=== PATIENT | female | born 1960 | race Caucasian/White ===

== ENCOUNTER 2018-07-11 16:56 | Inpatient (IN) ==
--- NOTE | 2018-07-11 17:29 | ED ---
HPI General Chief complaint: Neuro Symptoms/Deficit Stated complaint: Evac/Numbness Time Seen by Provider: 07/11/18 17:07 Source: patient, family, RN notes reviewed and old records reviewed Mode of arrival: EMS Limitations: no limitations History of Present Illness HPI narrative: 58-year-old female presents to the emergency department via EMS for evaluation of numbness and tingling to her left upper extremity with some mild weakness. She states this started in her second and third fingers, then traveled to her hands, then traveled to her breast, then upper arm. She states it is now in her left face as well. She states that it first started at 310 this afternoon, 2 hours ago. Patient also states she has some blurry vision. Symptoms are not worsening, but unchanged. She does also report history of atypical migraines with blurry vision in the past. She also reports stabbing pain to the left neck that started at the same time. Patient also reports left leg weakness that is been ongoing since a "mini stroke" 3 weeks ago. She states she was at [facility] at that time. She states she was started on aspirin. Patient has history of [place]'s disease, received IVIG for hypogammaglobulinemia, spinal stenosis. She states that she was referred to Dr. Cobos, neurosurgeon. He reviewed her records, but has not yet given her an appointment. Patient states that she believes her current symptoms are coming from her cervical spine. Patient had MRI done on June 22, 2018. She has this disc with her at bedside. Patient has multiple allergies to medications including contrast. Moderate severity. Onset (ago): hour(s) Location: face and upper extremity Severity: moderate Pain Consistency: constant Relieving factors: none Exacerbating factors: none Associated symptoms: denies other symptoms Related Data Home Medications Medication Instructions Recorded Confirmed albuterol sulfate [ProAir HFA] 2 puff INHALATION Q4-6H PRN 06/11/18 07/11/18 alprazolam [Xanax] 2 mg PO TID PRN 06/11/18 07/11/18 budesonide-formoterol [Symbicort] 2 puff INHALATION BID 06/11/18 07/11/18 fluticasone 1 spray INTRANASAL DAILY 06/11/18 07/11/18 hydrocortisone 5 mg PO BID NEB 06/11/18 07/11/18 levothyroxine 50 mcg PO DAILY 06/11/18 07/11/18 montelukast 10 mg PO QPM 06/11/18 07/11/18 omeprazole 40 mg PO DAILY 06/11/18 07/11/18 oxycodone-acetaminophen 1 tab PO Q4-6H PRN 06/11/18 07/11/18 fzzyasyunp-wpfetodkkftyn-llvf 1 cap PO BID PRN 07/11/18 07/11/18 [Fioricet] promethazine 25 mg PO TID PRN 07/11/18 07/11/18 Allergies Allergy/AdvReac Type Severity Reaction Status Date / Time morphine Allergy Severe itching Verified 07/11/18 17:25 penicillin G Allergy Severe THROAT Verified 07/11/18 17:25 CLOSES, FACIAL EDEMA latex Allergy Intermediate Rash Verified 07/11/18 17:25 shellfish derived Allergy Intermediate ITCHING, Verified 07/11/18 17:25 REDNESS, EDEMA iodine Allergy Unknown Rash Verified 07/11/18 17:25 potassium iodide Allergy Unknown Rash Verified 07/11/18 17:25 povidone-iodine Allergy Unknown Rash Verified 07/11/18 17:25 sodium iodide Allergy Unknown Rash Verified 07/11/18 17:25 sodium iodide Allergy Unknown Rash Verified 07/11/18 17:25 adhesive AdvReac Intermediate REDNESS Verified 07/11/18 17:25 gabapentin AdvReac Palpitation Verified 07/11/18 17:25 s prednisone AdvReac Numbness Verified 07/11/18 17:25 Review of Systems ROS: all other systems reviewed are negative 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 (Acute) TIA (transient ischemic attack) (Acute) Tumor, thyroid (Acute) Addisons disease (Acute) COPD (chronic obstructive pulmonary disease) (Acute) Lower back pain (Acute) Nerve damage (Acute) Spinal stenosis (Acute) Tumor, thyroid (Acute) Surgical History Surgical History H/O knee surgery (Acute) H/O tubal ligation (Acute) History of carpal tunnel surgery of right wrist (Acute) History of mandibular surgery (Acute) Social History Social History Substance History: No History of Abuse Second Hand Smoke Exposure: Yes Smoking Status: Current every day smoker Tobacco Type: Cigarettes How Often Do You Have a Drink Containing Alcohol: Monthly or less Recent Travel in [place] within the Last 8 Weeks: No Recent Out of Country Travel within the Last 8 Weeks: No Exam Narrative Exam Narrative: GENERAL: Well-nourished, well-developed female patient, afebrile SKIN: Focused skin assessment warm/dry. HEAD: Normocephalic. Atraumatic EYES: No scleral icterus. No injection or drainage. NECK: Supple, trachea midline. No JVD or lymphadenopathy. CARDIOVASCULAR: Regular rate and rhythm without murmurs, gallops, or rubs. RESPIRATORY: Breath sounds equal bilaterally. No accessory muscle use. Lung sounds are clear to auscultation peer GASTROINTESTINAL: Abdomen soft, non-tender, nondistended. MUSCULOSKELETAL: No cyanosis, or edema. Left upper extremity strength 5/5. Left lower extremity strength 4/5 - Patient states this has been ongoing for 3 weeks. BACK: Nontender without obvious deformity. No CVA tenderness. NEUROLOGICAL: Awake and alert. Cranial nerves II through XII intact. Motor and sensory grossly within normal limits. Five out of 5 muscle strength in all muscle groups. Normal speech. Patient reports decreased sensation in the left arm. No facial droop. Course Initial Documented Vital Signs Temperature 98.4 F 07/11/18 16:56 Pulse Rate 75 07/11/18 16:56 Respiratory Rate 18 07/11/18 16:56 Blood Pressure 128/77 07/11/18 16:56 Pulse Oximetry 95 07/11/18 16:56 Last Documented Vital Signs Temperature 98.4 F 07/11/18 16:56 Pulse Rate 68 07/11/18 18:15 Respiratory Rate 18 07/11/18 18:15 Blood Pressure 127/72 07/11/18 18:15 Pulse Oximetry 95 07/11/18 18:15 NIH Stroke Scale NIH Stroke Scale Level of Consciousness: 0-Alert Orientation Questions: 0-Answers both correct Responds to Commands: 0-Both tasks correct Gaze Eye Movement: 0-Horizontal movement WNL Visual Payan: 0-No visual field defect Facial Movement: 0-Normal Motor Functions Arm LEFT: 0-No drift Motor Functions Arm RIGHT: 0-No drift Motor Functions Leg LEFT: 1-Drift before 5 seconds Motor Functions Leg RIGHT: 0-No drift Limb Ataxia: 0-No ataxia Sensory Loss: 1-Mild sensory loss Best Language: 0-Normal Articulation: 0-Normal Extinction or Inattention Sensory: 0-Absent Total: 2 Medical Decision Making MDM Narrative Medical decision making narrative: 58-year-old female presents to the emergency department for evaluation of left arm paresthesias and left face numbness. She has history of stroke 3 weeks ago and is on IVIG. She is not a TPA candidate. My attending physician, Dr. Hernandez, examined patient as well. Patient has a desk of an MRI that she had done. MRI of the cervical spine without contrast was done on June 22, 2018 which shows mild disc bulge at the C5-C6 and C6-C7 levels, minimal central disc protrusion C4-C5 level, left neural foraminal narrowing at the C5-C6 level and bilateral neural foraminal narrowing at C6-C7 level primarily secondary to vertebral hypertrophy. Patient had MRI of the brain done at the same time which was negative. CBC, CMP, CK, troponin, PTT, PT /INR, CT the brain are ordered and pending. Patient is requesting pain medication for left neck pain. Patient states that morphine makes her itch, but she can take it with Benadryl or she can have Dilaudid which does not make her itch. Patient is given Dilaudid 0.5 mg IV, Zofran 4 mg IV. EKG shows SR, HR 75, no acute ST changes CBC shows no acute abnormality. CMP shows no acute abnormality. CK is 118. Troponin is less than 0.02. PTT is 20.3. PT/INR is 9.3/0.9. CT of the brain is negative. Patient states she took 81 mg aspirin earlier today, she was given another 3 baby aspirin to make a full aspirin. Hospitalist is paged for admission. Medical Screen Exam Complete: Yes Emergency Medical Condition: Yes Differential Diagnosis Differential Diagnosis: spinal stenosis vs. CVA vs. TIA vs. intracranial hemorrhage vs. electrolyte abnormality Medical Records Medical records reviewed: Yes I reviewed the patient's medical records. Lab Data Result diagrams: 07/11/18 18:00 07/11/18 18:00 Lab Results 07/11/18 07/11/18 07/11/18 Range/Units 18:00 18:00 18:00 WBC 9.3 (4.0-11.0) th/mm3 RBC 4.51 (4.00-5.30) mil/mm3 Hgb 13.7 (11.6-15.3) gm/dL Hct 40.8 (35.0-46.0) % MCV 90.5 (80.0-100.0) fL MCH 30.4 (27.0-34.0) pg MCHC 33.6 (32.0-36.0) % RDW 15.1 (11.6-17.2) % Plt Count 304 (150-450) th/mm3 MPV 7.8 (7.0-11.0) fL Neut % (Auto) 74.9 H (16.0-70.0) % Lymph % (Auto) 19.2 (9.0-44.0) % [place] % (Auto) 4.2 (0.0-8.0) % Eos % (Auto) 0.9 (0.0-4.0) % Baso % (Auto) 0.8 (0.0-2.0) % Neut # (Auto) 6.9 (1.8-7.7) th/mm3 Lymph # (Auto) 1.8 (1.0-4.8) th/mm3 [place] # (Auto) 0.4 (0.0-0.9) th/mm3 Eos # (Auto) 0.1 (0.0-0.4) th/mm3 Baso # (Auto) 0.1 (0.0-0.2) th/mm3 WBC Differential . Differential Comment Auto diff final PT 9.3 L (9.8-11.6) sec INR 0.9 Ratio APTT 20.3 L (24.3-30.1) sec Sodium 138 (136-145) meq/L Potassium 4.9 (3.5-5.1) meq/L Chloride 106 (98-107) meq/L Carbon Dioxide 23.9 (21.0-32.0) meq/L Anion Gap 8 (5-15) meq/L BUN 15 (7-18) mg/dL Creatinine 0.74 (0.50-1.00) mg/dL Estimated GFR 80 L (>89) mL/min POC Glucose (68-110) mg/dl Random Glucose 88 (74-106) mg/dL Calcium 8.5 (8.5-10.1) mg/dL Total Bilirubin 0.3 (0.2-1.0) mg/dL AST 43 H (15-37) U/L ALT 23 (10-53) U/L Alkaline Phosphatase 108 (45-117) U/L Total Creatine Kinase 118 (26-192) U/L CK-MB (CK-2) Less than 1.0 (0.5-3.6) ng/mL Troponin I Less than 0.02 L (0.02-0.05) ng/mL Total Protein 7.0 (6.4-8.2) g/dL Albumin 3.2 L (3.4-5.0) g/dL 07/11/18 Range/Units 18:13 WBC (4.0-11.0) th/mm3 RBC (4.00-5.30) mil/mm3 Hgb (11.6-15.3) gm/dL Hct (35.0-46.0) % MCV (80.0-100.0) fL MCH (27.0-34.0) pg MCHC (32.0-36.0) % RDW (11.6-17.2) % Plt Count (150-450) th/mm3 MPV (7.0-11.0) fL Neut % (Auto) (16.0-70.0) % Lymph % (Auto) (9.0-44.0) % [place] % (Auto) (0.0-8.0) % Eos % (Auto) (0.0-4.0) % Baso % (Auto) (0.0-2.0) % Neut # (Auto) (1.8-7.7) th/mm3 Lymph # (Auto) (1.0-4.8) th/mm3 [place] # (Auto) (0.0-0.9) th/mm3 Eos # (Auto) (0.0-0.4) th/mm3 Baso # (Auto) (0.0-0.2) th/mm3 WBC Differential Differential Comment PT (9.8-11.6) sec INR Ratio APTT (24.3-30.1) sec Sodium (136-145) meq/L Potassium (3.5-5.1) meq/L Chloride (98-107) meq/L Carbon Dioxide (21.0-32.0) meq/L Anion Gap (5-15) meq/L BUN (7-18) mg/dL Creatinine (0.50-1.00) mg/dL Estimated GFR (>89) mL/min POC Glucose 98 (68-110) mg/dl Random Glucose (74-106) mg/dL Calcium (8.5-10.1) mg/dL Total Bilirubin (0.2-1.0) mg/dL AST (15-37) U/L ALT (10-53) U/L Alkaline Phosphatase (45-117) U/L Total Creatine Kinase (26-192) U/L CK-MB (CK-2) (0.5-3.6) ng/mL Troponin I (0.02-0.05) ng/mL Total Protein (6.4-8.2) g/dL Albumin (3.4-5.0) g/dL Imaging Data Radiologist's impression: Head CT 07/11/18 17:25 CONCLUSION: 1. Negative noncontrast head CT. . Discharge Plan Discharge Disposition Patient Disposition: 30 Still Patient Discharge Details Diagnosis: Neurological complaint Physicians Team ED Provider: Sanjiv Hernandez ED Midlevel Provider: Itzel Michaud Primary Care Provider: Dorothy Owens Rxs /Orders / Referrals /Forms Prescriptions: No Action omeprazole 40 mg Capsule,Delayed Release(Dr/Ec) 40 mg PO DAILY RF: 0 oxycodone-acetaminophen 5-325 mg Tablet 1 tab PO Q4-6H PRN (Reason: Acute Pain) RF: 0 levothyroxine 50 mcg Tablet 50 mcg PO DAILY RF: 0 montelukast 10 mg Tablet 10 mg PO QPM RF: 0 alprazolam [Xanax] 2 mg Tablet 2 mg PO TID PRN (Reason: Anxiety) RF: 0 hydrocortisone 10 mg Tablet 5 mg PO BID NEB RF: 0 albuterol sulfate [ProAir HFA] 90 mcg/actuation Hfa Aerosol Inhaler 2 puff INHALATION Q4-6H PRN (Reason: Bronchodilation) RF: 0 fluticasone 50 mcg/actuation [place],Suspension 1 spray INTRANASAL DAILY RF: 0 budesonide-formoterol [Symbicort] 160-4.5 mcg/actuation Hfa Aerosol Inhaler 2 puff INHALATION BID RF: 0 promethazine 25 mg Tablet 25 mg PO TID PRN (Reason: Nausea) RF: 0 vwpfwawwof-ymbytsrtayepd-vsuc [Fioricet] 50-300-40 mg Capsule 1 cap PO BID PRN (Reason: Migraine Headache) RF: 0 Status ED Status: With Doctor
[2018-07-11] MEDS ORDERED: Sod Chloride 0.9% Inj 1,000 ML IV.CONT SCH (17:30)
[2018-07-11] MEDS ORDERED: HYDROmorphone PF Inj 0.5 MG/0.5 ML Syringe IV.PUSH ONE (17:59)
[2018-07-11 18:26] LABS: Baso # (Auto) 0.1 th/mm3 (0.0-0.2); Baso % (Auto) 0.8 % (0.0-2.0); Eos # (Auto) 0.1 th/mm3 (0.0-0.4); Eos % (Auto) 0.9 % (0.0-4.0); Hematocrit 40.8 % (35.0-46.0); Hemoglobin 13.7 gm/dL (11.6-15.3); Lymph # (Auto) 1.8 th/mm3 (1.0-4.8); Lymph % (Auto) 19.2 % (9.0-44.0); Mean Corpuscular HGB Conc 33.6 % (32.0-36.0); Mean Corpuscular Hemoglobin 30.4 pg (27.0-34.0); Mean Corpuscular Volume 90.5 fL (80.0-100.0); Mean Platelet Volume 7.8 fL (7.0-11.0); Mono # (Auto) 0.4 th/mm3 (0.0-0.9); Mono % (Auto) 4.2 % (0.0-8.0); Neut # (Auto) 6.9 th/mm3 (1.8-7.7); Neut % (Auto) 74.9 % (16.0-70.0); Platelet Count 304 th/mm3 (150-450); Red Blood Count 4.51 mil/mm3 (4.00-5.30); Red Cell Distribution Width 15.1 % (11.6-17.2); White Blood Count 9.3 th/mm3 (4.0-11.0)
[2018-07-11] MEDS ORDERED: HYDROmorphone PF Inj 2 MG/ML Vial IV.PUSH ONE (18:28)
[2018-07-11 18:41] LABS: Activated Partial Thrombo Time 20.3 sec (24.3-30.1); INR 0.9 Ratio; Prothrombin Time 9.3 sec (9.8-11.6)
[2018-07-11 18:53] LABS: Alanine Aminotransferase 23 U/L (10-53)
--- NOTE | 2018-07-11 18:57 | CT ---
EXAM DATE: 07/11/2018 6:52 PM EDT AGE/SEX: 58 years / Female INDICATIONS: Left arm shoulder and face numbness. CLINICAL DATA: This is the patient's initial encounter. Patient reports that signs and symptoms have been present for 1 day and indicates a pain score of 0/10. MEDICAL/SURGICAL HISTORY: Chronic obstructive pulmonary disease. rajinder's disease TIA thyroid tumo r None. RADIATION DOSE: 34.39 CTDI (mGy) COMPARISON: [facility], CT HEAD W/O CONTRAST, 06/11/2018. . TECHNIQUE: CT of the head without contrast. Using automated exposure control and adjustment of the mA and/or kV according to patient size, radiation dose was kept as low as reasonably achievable to ob tain optimal diagnostic quality images. DICOM format image data is available electronically for revi ew and comparison. FINDINGS: Cerebrum: The ventricles are normal for age. No evidence of midline shift, mass lesion, hemorrhage or acute infarction. No extraaxial fluid collections are seen. Posterior Fossa: The cerebellum and brainstem are intact. The 4th ventricle is midline. The cerebe llopontine angle is unremarkable. Extracranial: The visualized portion of the orbits is intact. Skull: The calvaria is intact. No evidence of skull fracture. CONCLUSION: 1. Negative noncontrast head CT. . Electronically signed by: Sung Velazquez MD 07/11/2018 6:56 PM EDT
[2018-07-11 19:03] LABS: Albumin 3.2 g/dL (3.4-5.0); Alkaline Phosphatase 108 U/L (45-117); Anion Gap 8 meq/L (5-15); Aspartate Aminotransferase 43 U/L (15-37); Blood Urea Nitrogen 15 mg/dL (7-18); Calcium 8.5 mg/dL (8.5-10.1); Carbon Dioxide 23.9 meq/L (21.0-32.0); Chloride 106 meq/L (98-107); Creatine Kinase 118 U/L (26-192); Glomerular Filtration Rate 80 mL/min (>89); Glucose,Random 88 mg/dL (74-106); Sodium 138 meq/L (136-145)
[2018-07-11 19:23] LABS: Potassium 4.9 meq/L (3.5-5.1)
[2018-07-11] MEDS ORDERED: Acetaminophen 325 MG Tablet PO PRN (21:15)
[2018-07-11] MEDS ORDERED: Bisacodyl 10 MG Supp RECTAL PRN (21:15)
--- NOTE | 2018-07-11 21:27 | P.HP ---
History of Present Illness Service: [facility] Primary Care Physician: Dorothy Owens History of Present Illness: 58-year-old female with a past medical history significant for [place]'s disease , COPD, previous TIA 3 weeks ago, spinal stenosis, hypothyroidism and chronic low back pain presents to the emergency department for the evaluation of left sided numbness. The patient reports that at 3 PM this afternoon she started having numbness in her fingers of her left hand. She states the numbness then transitioned up to her hand up her arm and ultimately to her face. She also endorses associated vision loss that has since resolved. She reports left lower extremity weakness that has been present since her "mini stroke" 3 weeks ago where she was evaluated in [facility]. Upon further questioning, the patient reports she was diagnosed with a TIA. She has spinal stenosis with chronic low back pain and reports that she is supposed to see Dr. Cobos. She denies any chest pain or shortness of breath. No abdominal pain. No nausea/vomiting/diarrhea. No fever/chills. 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 TIA (transient ischemic attack) Tumor, thyroid Addisons disease COPD (chronic obstructive pulmonary disease) Lower back pain Nerve damage Spinal stenosis Tumor, thyroid - Surgical History Surgical History: Surgical History (Last Updated 07/11/18 @ 17:34 by Stephanie Puri) H/O knee surgery H/O tubal ligation History of carpal tunnel surgery of right wrist History of mandibular surgery - Family History Family History: Family History (Last Updated 07/11/18 @ 21:21 by Haleigh Duran MD) Other Breast cancer - Tobacco History Second Hand Smoke Exposure: Yes Tobacco Use In Past 30 Days: Yes Smoking Status: Current every day smoker Tobacco Type: Cigarettes - Alcohol History How Often Do You Have a Drink Containing Alcohol: Monthly or less - Substance Use History Substance History: No History of Abuse - Travel History Recent Travel in the [facility] Within the Last 8 Weeks: No Recent Travel Out of the Country Within the Last 8 Weeks: No - Immunization History Tetanus Immunization: Unsure Hx Influenza Vaccine This Season: No Medications and Allergies Active Medications: Active Medications Sodium Chloride (Ns Inj) 1,000 mls @ 70 mls/hr IV.CONT .[id number] SAULO Stop: 07/12/18 07:47 Last Admin: 07/11/18 18:17 Dose: 70 mls/hr Sodium Chloride (Ns Flush) 2 ml IV.FLUSH PRN PRN PRN Reason: FLUSH AFTER USING IV ACCESS Last Admin: 07/11/18 18:18 Dose: 2 ml Allergies Allergy/AdvReac Type Severity Reaction Status Date / Time morphine Allergy Severe itching Verified 07/11/18 17:25 penicillin G Allergy Severe THROAT Verified 07/11/18 17:25 CLOSES, FACIAL EDEMA latex Allergy Intermediate Rash Verified 07/11/18 17:25 shellfish derived Allergy Intermediate ITCHING, Verified 07/11/18 17:25 REDNESS, EDEMA iodine Allergy Unknown Rash Verified 07/11/18 17:25 potassium iodide Allergy Unknown Rash Verified 07/11/18 17:25 povidone-iodine Allergy Unknown Rash Verified 07/11/18 17:25 sodium iodide Allergy Unknown Rash Verified 07/11/18 17:25 sodium iodide Allergy Unknown Rash Verified 07/11/18 17:25 adhesive AdvReac Intermediate REDNESS Verified 07/11/18 17:25 gabapentin AdvReac Palpitation Verified 07/11/18 17:25 s prednisone AdvReac Numbness Verified 07/11/18 17:25 Home Medications Medication Instructions Recorded Confirmed Type albuterol sulfate [ProAir HFA] 2 puff INHALATION Q4-6H PRN 06/11/18 07/11/18 History alprazolam [Xanax] 2 mg PO TID PRN 06/11/18 07/11/18 History budesonide-formoterol [Symbicort] 2 puff INHALATION BID 06/11/18 07/11/18 History fluticasone 1 spray INTRANASAL DAILY 06/11/18 07/11/18 History hydrocortisone 5 mg PO BID NEB 06/11/18 07/11/18 History levothyroxine 50 mcg PO DAILY 06/11/18 07/11/18 History montelukast 10 mg PO QPM 06/11/18 07/11/18 History omeprazole 40 mg PO DAILY 06/11/18 07/11/18 History oxycodone-acetaminophen 1 tab PO Q4-6H PRN 06/11/18 07/11/18 History jvghrsikya-xcxlxlzpgfdnm-mzls 1 cap PO BID PRN 07/11/18 07/11/18 History [Fioricet] promethazine 25 mg PO TID PRN 07/11/18 07/11/18 History Exam Vital signs: Vital Signs 07/11/18 16:56 07/11/18 17:25 07/11/18 18:15 Temperature 98.4 F Pulse Rate 75 68 Respiratory Rate 18 18 Blood Pressure 128/77 127/72 Pulse Oximetry 95 95 95 07/11/18 20:15 Temperature Pulse Rate 63 Respiratory Rate 18 Blood Pressure 136/79 Pulse Oximetry 98 Intake & Output 07/11/18 07/11/18 07/12/18 06:59 18:59 06:59 Weight 172 kg Narrative: Gen.: No acute distress Head: Normocephalic. Atraumatic. EENT: Pupils equal round and reactive to light. Nose without drainage. Airway intact. Throat without injection. Cardiovascular: Regular rate and rhythm. No murmurs, rubs or gallops. Respiratory: Lungs clear to auscultation bilaterally. No wheezes or rhonchi. Abdomen: Soft, nontender, nondistended. No peritoneal signs. Musculoskeletal: No gross deformities. No edema. Skin: No obvious rashes or erythema. Neuro: Cranial nerves II through XII grossly intact. 4/5 left lower extremity weakness. Patient reports that she is unable to do heel to cardenas testing secondary to pain/weakness and will not attempt this. 5/5 handgrip, upper extremity strength. Reports "pins and needles sensation" in the left fingers, hand, left arm and around her mouth. Results - Labs CBC & Chem 7: 07/11/18 18:00 07/11/18 18:00 Labs: Laboratory Results - last 24 hr 07/11/18 07/11/18 07/11/18 18:00 18:00 18:00 WBC 9.3 RBC 4.51 Hgb 13.7 Hct 40.8 MCV 90.5 MCH 30.4 MCHC 33.6 RDW 15.1 Plt Count 304 MPV 7.8 Neut % (Auto) 74.9 H Lymph % (Auto) 19.2 [place] % (Auto) 4.2 Eos % (Auto) 0.9 Baso % (Auto) 0.8 Neut # (Auto) 6.9 Lymph # (Auto) 1.8 [place] # (Auto) 0.4 Eos # (Auto) 0.1 Baso # (Auto) 0.1 WBC Differential . Differential Comment Auto diff final PT 9.3 L INR 0.9 APTT 20.3 L Sodium 138 Potassium 4.9 Chloride 106 Carbon Dioxide 23.9 Anion Gap 8 BUN 15 Creatinine 0.74 Estimated GFR 80 L POC Glucose Random Glucose 88 Calcium 8.5 Total Bilirubin 0.3 AST 43 H ALT 23 Alkaline Phosphatase 108 Total Creatine Kinase 118 CK-MB (CK-2) Less than 1.0 Troponin I Less than 0.02 L Total Protein 7.0 Albumin 3.2 L 07/11/18 18:13 WBC RBC Hgb Hct MCV MCH MCHC RDW Plt Count MPV Neut % (Auto) Lymph % (Auto) [place] % (Auto) Eos % (Auto) Baso % (Auto) Neut # (Auto) Lymph # (Auto) [place] # (Auto) Eos # (Auto) Baso # (Auto) WBC Differential Differential Comment PT INR APTT Sodium Potassium Chloride Carbon Dioxide Anion Gap BUN Creatinine Estimated GFR POC Glucose 98 Random Glucose Calcium Total Bilirubin AST ALT Alkaline Phosphatase Total Creatine Kinase CK-MB (CK-2) Troponin I Total Protein Albumin - Imaging Impressions Head CT 07/11/18 17:25 CONCLUSION: 1. Negative noncontrast head CT. . Caprini VTE Risk Assessment Caprini VTE Risk Assessment: No/Low Risk (score <= 1) Caprini Risk Assessment Model: Point Value = 1 Point Value = 2 Point Value = 3 Point Value = 5 Age 41-60 Minor surgery BMI > 25 kg/m2 Swollen legs Varicose veins or History of unexplained or recurrent spontaneous Oral contraceptives or hormone replacement Sepsis (< 1 month) Serious lung disease, including pneumonia (< 1 month) Abnormal pulmonary function Acute myocardial infarction Congestive heart failure (< 1 month) History of inflammatory bowel disease Medical patient at bed rest Age 61-74 Arthroscopic surgery Major open surgery (> 45 min) Laparoscopic surgery (> 45 min) Malignancy Confined to bed (> 72 hours) Immobilizing plaster cast Central venous access Age >= 75 History of VTE Family history of VTE Factor V Leiden Prothrombin [id number] Lupus anticoagulant Anticardiolipin antibodies Elevated serum homocysteine Heparin-induced thrombocytopenia Other congenital or acquired thrombophilia Stroke (< 1 month) Elective arthroplasty Hip, pelvis, or leg fracture Acute spinal cord injury (< 1 month) Prophylaxis Regimen: Total Risk Factor Score Risk Level Prophylaxis Regimen 0-1 Low Early ambulation 2 Moderate Order ONE of the following: *Sequential Compression Device (SCD) *Heparin 5000 units SQ BID 3-4 Higher Order ONE of the following medications: *Heparin 5000 units SQ TID *Enoxaparin/Lovenox 40 mg SQ daily (WT < 150 kg, CrCl > 30 mL/min) *Enoxaparin/Lovenox 30 mg SQ daily (WT < 150 kg, CrCl > 10-29 mL/min) *Enoxaparin/Lovenox 30 mg SQ BID (WT < 150 kg, CrCl > 30 mL/min) AND/OR *Sequential Compression Device (SCD) 5 or more Highest Order ONE of the following medications: *Heparin 5000 units SQ TID (Preferred with Epidurals) *Enoxaparin/Lovenox 40 mg SQ daily (WT < 150 kg, CrCl > 30 mL/min) *Enoxaparin/Lovenox 30 mg SQ daily (WT < 150 kg, CrCl > 10-29 mL/min) *Enoxaparin/Lovenox 30 mg SQ BID (WT < 150 kg, CrCl > 30 mL/min) AND *Sequential Compression Device (SCD) Assessment and Plan - Plan Assessment/plan: 1. 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 Hypothyroidism Continue home Synthroid 4. COPD Continue home Symbicort 5. Spinal stenosis/chronic back pain Patient will require outpatient follow-up FEN N.p.o. Elect lites: Monitor and replete as needed NS at 70 cc/hour
[2018-07-11] MEDS: Sod Chloride 0.9% Inj 1,000 ML IV.CONT SCH (22:28)
[2018-07-11] MEDS ORDERED: oxyCODONE/Acetaminophen 10/325 Tablet PO ONE (23:41)
[2018-07-12] MEDS ORDERED: Levothyroxine 50 MCG Tablet PO SCH (06:00)
[2018-07-12 07:19] LABS: Alanine Aminotransferase 21 U/L (10-53); Albumin 2.8 g/dL (3.4-5.0); Alkaline Phosphatase 93 U/L (45-117); Anion Gap 6 meq/L (5-15); Aspartate Aminotransferase 17 U/L (15-37); Blood Urea Nitrogen 10 mg/dL (7-18); Calcium 7.8 mg/dL (8.5-10.1); Carbon Dioxide 27.8 meq/L (21.0-32.0); Chloride 111 meq/L (98-107); Glomerular Filtration Rate 83 mL/min (>89); Glucose,Random 73 mg/dL (74-106); Potassium 3.9 meq/L (3.5-5.1); Sodium 145 meq/L (136-145); Total Protein 6.2 g/dL (6.4-8.2)
[2018-07-12] MEDS: Aspirin 325 MG Tablet PO SCH (08:28)
[2018-07-12] MEDS: Hydrocortisone 10 MG Tablet PO SCH ×3 (08:28→21:16)
[2018-07-12] MEDS: Budesonide-Formoterol 160/4.5 MCG 6 GM Inhaler INH SCH ×2 (10:58→21:17)
[2018-07-12] MEDS: Senna/Docusate Sodium 8.6/50 MG Tablet PO SCH ×2 (10:59→21:17)
--- NOTE | 2018-07-12 11:21 | MB ---
cc: Gita Dawkins MD DATE: 07/12/2018 REASON FOR CONSULT: Possible TIA. HISTORY OF PRESENT ILLNESS: The patient is a 58-year-old woman with primary care Dr. Dorothy Owens, with a history of Bulloch's, COPD, TIA 3 weeks ago at [facility], spinal stenosis, chronic neck pain, hypothyroidism, comes in with left-sided numbness apparently started in the fingers of the left hand and went up to the face. She states she has some chronic numbness in the left leg from old injury. Apparently, she was at [facility] in [place] a few weeks ago and had a workup; however, we do not have that workup available. She also has a history of spinal stenosis and should be seeing Neurosurgery at some point. Has had an MRI of her neck, which she complains of chronic pain, recently I believe in [facility]. Follows with a pain management doctor as well. Also, has a history of hypogammaglobulinemia and follows with Dr. Rhoades, receiving IVIG as warranted. I believe it has been a couple of months since she has had her last IVIG. The patient also has a history of breast cancer and ovarian cancer per chart. SOCIAL HISTORY: She is a smoker daily, alcohol infrequently. No substance abuse. HOME MEDICATIONS: Refer to her MAR, but she is on hydrocortisone 5 mg, Synthroid for thyroid. Of note, she states she has thyroid nodules as well. She is on pain medication as well. PHYSICAL EXAMINATION: VITAL SIGNS: Temperature is 97.7, pulse 63, respiratory rate 17, blood pressure is 113/67, saturating at 98%. NECK: Supple. I do not appreciate any bruits. HEART: Regular. NEUROLOGIC: She is awake. She is alert. She is fluent. Pupils reactive. Face symmetrical. Tongue is midline. Motor arango, there is no significant drift or leg lag. She just has what looks like generalized weakness, possibly from disuse and from chronic pain, but she has not lateralizing to one side. Her DTRs are brisk. Toes are downgoing. Sensory is decreased on the left side of her face and left arm to light touch. Cerebellar is normal. Gait is withheld for safety concerns. DIAGNOSTIC DATA: Labs are reviewed. Her CBC: Her neutrophil percentage is 74.9. Coag panel: PT 9.3, PTT 28.3. Chemistry: GFR is 83, glucose 73, calcium 7.8, albumin 2.8. Report arango, is far CT of the head, did not show anything acute. ASSESSMENT AND PLAN: Possible transient ischemic attack may be related to spinal stenosis. Recommend getting a workup. We will do the MRI. I am going to also get an EEG on her as well. Continue her home medicines. Consider consulting Dr. Rhoades with this immunoglobulinemia if she needs any IVIG while she is here. Possibly consulting neurosurgery for her C-spine. I do not see any myelopathic features, but will defer to neurosurgery if anything inpatient arango is indicated. If the report from [facility] for MRI can be obtained, otherwise consider repeating an MRI C-spine. I will also go ahead and get a MRA [place], get a carotid ultrasound, as well as an echo. Maintain her aspirin and check a fasting lipid panel: LDL above 100, certainly will start her on a statin if needed. Continue current care. I have PT and OT assess her. Maintain telemetry for any dysrhythmia. MD CHRISTOPHER Han/ashish , 10:09 AM , 10:20 AM
--- NOTE | 2018-07-12 11:37 | US ---
EXAM DATE: 07/12/2018 11:31 AM EDT AGE/SEX: 58 years / Female INDICATIONS: Trans ischemic attack. CLINICAL DATA: This is the patient's initial encounter. Patient reports that signs and symptoms have been present for 1 day and indicates a pain score of 10/10. MEDICAL/SURGICAL HISTORY: . Colby's disease. Spinal stenosis. COPD. CVA. Stenosis of jimena ry in neck. TIA. Thyroid tumor. . Hysterectomy. Knee surgery. Tubal ligation. Carpal tunnel rig ht wrist. Mandibular surgery. COMPARISON: No prior exams available for comparison. VELOCITY PARAMETERS: ICA/CCA Ratio: Right 1.6 , Left 0.94 ICA: Right 138 cm/sec, Left 103 cm/sec CCA: Right 86 cm/sec, Left 109 cm/sec ECA: Right 71 cm/sec, Left 67 cm/sec Vertebral: Right 53 cm/sec antegrade, Left 76 cm/sec antegrade FINDINGS: Right Carotid: No significant plaque is visualized. There is mild elevated velocity in the right int ernal carotid artery. Left Carotid: No significant plaque is visualized. The waveforms are within normal limits. Other: A 1.8 x 1.0 x 1.1 cm hypoechoic circumscribed right thyroid nodule is noted. It is solid in a ppearance. CONCLUSION: 1. Right Internal Carotid Artery: No significant stenosis or atherosclerotic plaque is visualized. 2. Left Internal Carotid Artery: No significant stenosis or atherosclerotic plaque is visualized. 3. Right thyroid nodule. Electronically signed by: Juancarlos Leiva MD 07/12/2018 11:36 AM EDT
--- NOTE | 2018-07-12 13:07 | P.PNIM ---
Subjective Interval history: Patient reports persistent neck pain. She endorsed left lower extremity weakness and left upper extremity numbness. Physical Exam Vital signs: Vital Signs 07/11/18 16:56 07/11/18 17:25 07/11/18 18:15 Temperature 98.4 F Pulse Rate 75 68 Respiratory Rate 18 18 Blood Pressure 128/77 127/72 Pulse Oximetry 95 95 95 07/11/18 19:22 07/11/18 20:15 07/11/18 22:19 Temperature 97.3 F L Pulse Rate 63 57 L Respiratory Rate 17 18 18 Blood Pressure 136/79 130/63 Pulse Oximetry 98 99 07/12/18 00:00 07/12/18 01:56 07/12/18 04:00 Temperature 97.4 F L 97.2 F L Pulse Rate 53 L 54 L Respiratory Rate 18 18 18 Blood Pressure 114/73 105/67 Pulse Oximetry 97 97 07/12/18 08:00 Temperature 97.7 F Pulse Rate 63 Respiratory Rate 17 Blood Pressure 113/67 Pulse Oximetry 98 Intake & Output 07/11/18 07/12/18 07/12/18 18:59 06:59 18:59 Output Total 100 / 100 Balance -100 / -100 Weight 172 kg 85.7 kg Output: Urine 100 / 100 Other: # Voids 2 Date of Last Bowel Movement 07/11/18 07/11/18 Narrative: GENERAL: This is a well-nourished, well-developed patient, in no apparent distress. CARDIOVASCULAR: Normal rate and regular rhythm without murmurs, gallops, or rubs. RESPIRATORY: Good respiratory efforts. Breath sounds equal and clear to auscultation bilaterally. GASTROINTESTINAL: Abdomen soft, non-tender, non-distended. Normal active bowel sounds MUSCULOSKELETAL: Extremities without cyanosis, or edema. NEURO: Alert & Oriented x4 to person, place, time, situation. 4+ out of 5 left lower extremity. 5 out of 5 rest of the major muscle groups. PSYCH: Appropriate mood and affect. Results - Labs CBC & Chem 7: 07/11/18 18:00 07/12/18 05:35 Laboratory Results - last 24 hr 07/11/18 07/11/18 07/11/18 18:00 18:00 18:00 WBC 9.3 RBC 4.51 Hgb 13.7 Hct 40.8 MCV 90.5 MCH 30.4 MCHC 33.6 RDW 15.1 Plt Count 304 MPV 7.8 Neut % (Auto) 74.9 H Lymph % (Auto) 19.2 [place] % (Auto) 4.2 Eos % (Auto) 0.9 Baso % (Auto) 0.8 Neut # (Auto) 6.9 Lymph # (Auto) 1.8 [place] # (Auto) 0.4 Eos # (Auto) 0.1 Baso # (Auto) 0.1 WBC Differential . Differential Comment Auto diff final PT 9.3 L INR 0.9 APTT 20.3 L Sodium 138 Potassium 4.9 Chloride 106 Carbon Dioxide 23.9 Anion Gap 8 BUN 15 Creatinine 0.74 Estimated GFR 80 L POC Glucose Random Glucose 88 Calcium 8.5 Total Bilirubin 0.3 AST 43 H ALT 23 Alkaline Phosphatase 108 Total Creatine Kinase 118 CK-MB (CK-2) Less than 1.0 Troponin I Less than 0.02 L Total Protein 7.0 Albumin 3.2 L 07/11/18 07/12/18 18:13 05:35 WBC RBC Hgb Hct MCV MCH MCHC RDW Plt Count MPV Neut % (Auto) Lymph % (Auto) [place] % (Auto) Eos % (Auto) Baso % (Auto) Neut # (Auto) Lymph # (Auto) [place] # (Auto) Eos # (Auto) Baso # (Auto) WBC Differential Differential Comment PT INR APTT Sodium 145 Potassium 3.9 D Chloride 111 H Carbon Dioxide 27.8 Anion Gap 6 BUN 10 Creatinine 0.72 Estimated GFR 83 L POC Glucose 98 Random Glucose 73 L Calcium 7.8 L Total Bilirubin 0.3 AST 17 ALT 21 Alkaline Phosphatase 93 Total Creatine Kinase CK-MB (CK-2) Troponin I Total Protein 6.2 L D Albumin 2.8 L - Imaging Impressions Head CT 07/11/18 17:25 CONCLUSION: 1. Negative noncontrast head CT. . Carotid Doppler Study 07/12/18 00:00 CONCLUSION: 1. Right Internal Carotid Artery: No significant stenosis or atherosclerotic plaque is visualized. 2. Left Internal Carotid Artery: No significant stenosis or atherosclerotic plaque is visualized. 3. Right thyroid nodule. Assessment and Plan - Plan 58-year-old female who presented with acute neurological symptoms including left upper extremity numbness, left lower extremity weakness, vision loss. TIA versus worsening spinal stenosis: -Discussed the case with neurology, Dr. Dawkins. This is the patient's second hospitalization within the past couple of weeks. I reviewed the report for her MRI from 06/22/18 which revealed cervical disc bulging and spinal stenosis. Patient reports she previously spoke to Dr. Cobos office and is awaiting an appointment. - Agree with neurology, consult neurosurgery to evaluate the film and further workup or intervention as indicated. -Continue CVA workup with MRI, carotid ultrasound. 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 Rhoades for IVIG. Per the last note on March 2018, she was supposed to follow-up in 3 weeks. - Will consult Dr. Rhoades. Not clear to me how often she is supposed to receive IVIG. Hypothyroidism Continue home Synthroid COPD Continue home Symbicort Spinal stenosis/chronic back pain -Continue home dose narcotic. Neurosurgery consulted as above. GI prophylaxis: PPI. Stool softener PRN constipation. DVT PPx: Lovenox Discussed Condition With: Neurology, Dr. Dawkins
[2018-07-12] MEDS: Sod Chloride 0.9% Inj 1,000 ML IV.CONT SCH (13:39)
[2018-07-12 14:06] LABS: Chol/HDL Ratio 3.48 Ratio; HDL Cholesterol 56.8 mg/dL (40.0-60.0)
--- NOTE | 2018-07-12 16:00 | MR ---
EXAM DATE: 07/12/2018 3:56 PM EDT AGE/SEX: 58 years / Female INDICATIONS: CVA. CLINICAL DATA: This is the patient's initial encounter. Patient reports that signs and symptoms have been present for 1 day and indicates a pain score of 0/10. MEDICAL/SURGICAL HISTORY: None. Hysterectomy. Tubal ligation. Left knee. COMPARISON: No prior exams available for comparison. TECHNIQUE: 3D [id number] MRA was performed. Source images, multiplanar STS MIP, and 3D volum e MIP reconstructions were reviewed. FINDINGS: There is excellent visualization of the major intracranial arteries out to the second-order branch ve ssels. There is no evidence for vessel truncation or stenosis, and no evidence for vascular malforma tion. There is a 3.9 mm aneurysm in the right para ophthalmic region seen on sagittal image 30 of series 10 2, and axial source image 70. It is directed superiorly. CONCLUSION: 1. Right paraophthalmic artery aneurysm. Electronically signed by: Juancarlos Leiva MD 07/12/2018 3:59 PM EDT
--- NOTE | 2018-07-12 16:14 | MR ---
EXAM DATE: 07/12/2018 4:02 PM EDT AGE/SEX: 58 years / Female INDICATIONS: CVA. CLINICAL DATA: This is the patient's initial encounter. Patient reports that signs and symptoms have been present for 1 day and indicates a pain score of 0/10. MEDICAL/SURGICAL HISTORY: None. Hysterectomy. Tubal ligation. Colectomy and broken jaw. COMPARISON: C, MRA HEAD W/O CONTRAST, 07/12/2018. . TECHNIQUE: Multiplanar, multisequence examination of the brain was performed without contrast. FINDINGS: Diffusion weighted images demonstrate no evidence for acute infarction. Ventricles and cisterns are o f normal size and configuration. The signal intensity of the brain is normal. No hemorrhage or mass. CONCLUSION: 1. Negative MR Brain non contrast. Electronically signed by: Juancarlos Leiva MD 07/12/2018 4:13 PM EDT
[2018-07-12 17:19] LABS: Immunoglobulin A 189 mg/dL (81-446)
[2018-07-12 17:30] LABS: Immunoglobulin G 754 mg/dL (660-1620); Immunoglobulin M 43 mg/dL (49-302)
[2018-07-12] MEDS: Montelukast 10 MG Tablet PO SCH (18:18)
--- NOTE | 2018-07-12 18:59 | ECG ---
Date Performed: 07/11/2018 Time Performed: 17:21:51 PTAGE: 58 years EKG: Sinus rhythm WITH SINUS ARRHYTHMIA LOW QRS VOLTAGE IN PRECORDIAL LEADS BORDERLINE ECG PREVIOUS TRACING : 06/16/2015 10.40 Since the previous tracing, no significant change noted DOCTOR: Timothy Garcia Interpretating Date/Time 07/12/2018 18:54:01
--- NOTE | 2018-07-12 19:51 | MG ---
cc: Gita Dawkins MD EEG NUMBER: [id number] INDICATIONS: Room 1518. I am reading a requesting awake, drowsy, sleep hyperventilation good effort. Photic done. CT negative. Admitted with numbness, left face and arm. Possible transient ischemic attack, started in the arm and then marched up to the face, possible seizures. History of [place] and other medical problems. DESCRIPTION OF RECORD: The patient has a background rhythm of 11 Hz, 20-40 microvolts. The patient seems to be snoring from the beginning portion of this recording, so there is some artifact seen. Does not correlate with any epileptiform features. Otherwise fairly symmetrical background. Photic stimulation does elicit a driving response. We tried to keep the patient awake during that portion. IMPRESSION: Overall, normal appearing electroencephalogram without any epileptiform features. Clinical correlation. Gita Dawkins MD DF/ct , 07:10 PM , 07:15 PM
--- NOTE | 2018-07-12 20:09 | MB ---
cc: Amrita Rhoades MD,Carey WANG DATE: 07/12/2018 REFERRING PHYSICIAN: Carey Sy MD CHIEF COMPLAINT: Dr. Sy requested a consultation for Ms. Lawrence regarding hypogammaglobulinemia. HISTORY OF PRESENT ILLNESS: Ms. Lawrence is a 58-year-old woman with a history of ovarian and breast cancer. She also has multinodular goiter and hypothyroidism for which she is on Synthroid. She is very particular about her Synthroid medication. She has a history of hypogammaglobulinemia for which she was seen recently. She was diagnosed at the [facility] and her previous place of residence. She was treated with IVIG every 28 days. She was followed in hematology clinic. Over the last several visits, her immunoglobulins were within the normal range. For this reason, she was not treated with IVIG. She reported a history of stroke or TIA and was admitted to [facility]. Imaging study performed on an outpatient basis included an MRI of the brain. MRI of the cervical spine on 06/22/2018 that showed bowel disk bulges at C5-C6 and C6-C7. There is mild central disk protrusion at C4-C5. There is left neural foraminal narrowing at C5-C6 and bilateral neural foraminal narrowing at C6-C7. MRI of the brain on 06/22/2018 was negative. She presented to the emergency room on 07/11/2018 with neurologic symptoms. She had numbness and tingling of her left upper extremity and some mild weakness. She still complains of numbness of her left side of her face and the left side of her body. She describes having a mini stroke. Imaging study was reviewed including the CT of cervical spine, CT head, carotid Doppler, MRA, and MRI. The only significant finding is a right para-ophthalmologic artery aneurysm that does not explain her symptoms. Neurology has been consulted. She denies any fevers, chills, or night sweats. She has no infection. She mainly complains of the neurologic symptom. Hematology/oncology is consulted for the hypogammaglobulinemia history. Laboratory evaluation including an IgG which was within normal limits. PAST MEDICAL HISTORY: Anemia, anxiety, depression, diverticulosis, COPD/asthma, migraine with aura, recurrent maxillary sinusitis, spinal stenosis, chronic tobacco use, hypogammaglobulinemia, multinodular goiter, history of uterine cancer/ovarian cancer, history of breast cancer. PAST SURGICAL HISTORY: Left knee surgery, endoscopy, left neck lymph node biopsy, colon resection, colposcopy, ADOLPH/BSO in 2001. FAMILY HISTORY: Mother is alive. No significant family history of immunodeficiency. SOCIAL HISTORY: She is single, disabled. She quit smoking 12 years ago. She drinks actively. She denies any illicit drug use. ALLERGIES: 1. CODEINE. 2. MORPHINE. 3. PENICILLIN. CURRENT MEDICATIONS: 1. Tylenol p.r.n. 2. Ventolin. 3. Xanax p.r.n. 4. Aspirin. 5. Dulcolax p.r.n. 6. Symbicort. 7. Solu-Cortef. 8. Lactulose. 9. Synthroid. 10. Singulair. 11. Zofran. 12. Percocet p.r.n. 13. Protonix. 14. Gayle-Colace. 15. Senokot. PHYSICAL EXAMINATION: VITAL SIGNS: Temperature 97.7, heart rate 69, respiratory rate 17, blood pressure 127/66, saturation 96%. GENERAL: Ms. Lawrence is a well-developed, well-nourished woman, who looks her stated age. She seems to be doing well and stable. She has many complaints. HEENT: Her pupils are round, reactive to light and accommodation. Oropharynx is clear. NECK: Supple. LUNGS: Clear anteriorly. CARDIOVASCULAR: Normal rate and rhythm. ABDOMEN: Benign. EXTREMITIES: Lower extremities with no edema. NEUROLOGIC: Nonfocal. She moves all 4 extremities. LABORATORY DATA: CBC is normal. Chemistry significant for a mild hypoalbuminemia. Glucose is mildly elevated. ASSESSMENT AND PLAN: Ms. Lawrence is a 58-year-old woman with multiple medical problems described above. She is admitted with neurologic symptoms and weakness on the left side. Workup is ongoing for a neurologic event. We discussed her adrenal insufficiency. We will coordinate her hydrocortisone as she takes it at home. We will write that she could take her own Synthroid for which she is very particular. She does not need IVIG at this juncture. Even during an acute illness such as this, her immunoglobulin level is normal. I recommend no specific therapy. I will follow her on outpatient basis. The case was discussed with neurology. We will see her at her regularly scheduled visit to check her immunoglobulin again on outpatient basis. MD DAY Ocampo/marnie , 06:27 PM , 06:39 PM
[2018-07-13] MEDS: Sod Chloride 0.9% Inj 1,000 ML IV.CONT SCH ×2 (05:52→18:52)
[2018-07-13 06:27] VITALS: RESP 18
[2018-07-13] MEDS: Senna/Docusate Sodium 8.6/50 MG Tablet PO SCH (08:59)
[2018-07-13] MEDS: Aspirin 325 MG Tablet PO SCH (08:59)
[2018-07-13] MEDS: Budesonide-Formoterol 160/4.5 MCG 6 GM Inhaler INH SCH (10:52)
[2018-07-13] MEDS: Hydrocortisone 10 MG Tablet PO SCH ×3 (10:52→15:58)
--- NOTE | 2018-07-13 12:52 | ECHRPT ---
Indication: cva/tia CONCLUSIONS Normal left ventricular size. Wall thickness is normal. The left ventricular systolic function is normal with an estimated ejection fraction in the range of 60-65%. Trace mitral valve regurgitation. There is trace tricuspid valve regurgitation. The estimated pulmonary arterial pressure is 27 mmHg. BP: / HR: Rhythm: MEASUREMENTS (Male / Female) Normal Values Technical Quality: 2D ECHO LV Diastolic Diameter PLAX 4.2 cm 4.2 - 5.9 / 3.9 - 5.3 cm LV Systolic Diameter PLAX 3.1 cm IVS Diastolic Thickness 0.7 cm 0.6 - 1.0 / 0.6 - 0.9 cm LVPW Diastolic Thickness 0.8 cm 0.6 - 1.0 / 0.6 - 0.9 cm LV Relative Wall Thickness 0.3 RV Internal Dim ED PLAX 3.2 cm LVOT Diameter 1.9 cm LV Ejection Fraction MOD 4C 60.6 % LV Ejection Fraction 4C AL 62.0 % M-MODE Aortic Root Diameter MM 3.4 cm LA Systolic Diameter MM 3.9 cm LA Ao Ratio MM 1.1 AV Cusp Separation MM 2.1 cm DOPPLER AV Peak Velocity 129.0 cm/s AV Peak Gradient 6.7 mmHg LVOT Peak Velocity 106.0 cm/s LVOT Peak Gradient 4.5 mmHg AV Area Cont Eq pk 2.3 cm Mitral E Point Velocity 87.4 cm/s Mitral A Point Velocity 76.5 cm/s Mitral E to A Ratio 1.1 LV E' Lateral Velocity 13.3 cm/s Mitral E to LV E' Lateral Ratio 6.6 LV E' Septal Velocity 9.2 cm/s Mitral E to LV E' Septal Ratio 9.5 TV Peak Velocity 190.0 cm/s TR Peak Velocity 205.0 cm/s TR Peak Gradient 16.8 mmHg Right Atrial Pressure 10.0 mmHg Pulmonary Artery Systolic Pressu 26.8 mmHg Right Ventricular Systolic Press 26.8 mmHg PV Peak Velocity 70.6 cm/s PV Peak Gradient 2.0 mmHg FINDINGS LEFT VENTRICLE Normal left ventricular size. Wall thickness is normal. The left ventricular systolic function is normal with an estimated ejection fraction in the range of 60-65%. RIGHT VENTRICLE Normal right ventricular size and systolic function. LEFT ATRIUM The left atrial size is normal. RIGHT ATRIUM The right atrial size is normal. ATRIAL SEPTUM Normal atrial septal thickness without atrial level shunting by limited color doppler interrogation. AORTA The aortic root and proximal ascending aorta are normal in size on limited imaging. MITRAL VALVE Trace mitral valve regurgitation. AORTIC VALVE Trileaflet aortic valve. No aortic valve stenosis or regurgitation. TRICUSPID VALVE There is trace tricuspid valve regurgitation. The estimated pulmonary arterial pressure is 27 mmHg. PULMONARY VALVE No pulmonary valve regurgitation or stenosis. VESSELS The inferior vena cava is normal in size. PERICARDIUM No pericardial effusion. Junior Menard MD (Electronically Signed) Final Date:13 July 2018 12:51
--- NOTE | 2018-07-13 16:44 | P.PNIM ---
Subjective Interval history: Patient reports she is feeling better in terms of left lower leg weakness. She believes it is now at baseline. No longer having left upper extremity numbness. She states the neck numbness and neck pain is at baseline. MRI of the brain is negative. 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 Physical Exam Vital signs: Vital Signs 07/12/18 20:00 07/12/18 20:40 07/12/18 22:52 Temperature 98.1 F Pulse Rate 61 Respiratory Rate 18 18 Blood Pressure 122/60 Pulse Oximetry 95 95 07/13/18 00:00 07/13/18 00:30 07/13/18 04:00 Temperature 97.6 F 97.2 F L Pulse Rate 58 L 58 L 59 L Respiratory Rate 18 16 Blood Pressure 106/58 L 123/69 Pulse Oximetry 94 L 96 07/13/18 04:10 07/13/18 04:30 07/13/18 08:00 Temperature 98.7 F Pulse Rate 56 L 62 Respiratory Rate 18 18 Blood Pressure 141/81 H Pulse Oximetry 94 L 07/13/18 10:11 07/13/18 10:40 07/13/18 12:00 Temperature 98 F Pulse Rate 57 L 55 L Respiratory Rate 18 Blood Pressure 137/72 Pulse Oximetry 94 L 96 07/13/18 13:09 Temperature Pulse Rate 57 L Respiratory Rate Blood Pressure Pulse Oximetry Intake & Output 07/12/18 07/13/18 07/13/18 18:59 06:59 18:59 Intake Total 1310 / 1310 1000 / 1000 Balance 1310 / 1310 1000 / 1000 Weight 85.7 kg Intake: IV 950 / 950 1000 / 1000 NS Inj 1,000 ML @ 70 mls/hr IV. 950 / 950 CONT .[id number] [facility] Rx#:[id number] Oral 360 / 360 Other: # Voids 3 1 Date of Last Bowel Movement 07/11/18 07/11/18 # Bowel Movements 0 Narrative: GENERAL: This is a well-nourished, well-developed patient, in no apparent distress. CARDIOVASCULAR: Normal rate and regular rhythm without murmurs, gallops, or rubs. RESPIRATORY: Good respiratory efforts. Breath sounds equal and clear to auscultation bilaterally. GASTROINTESTINAL: Abdomen soft, non-tender, non-distended. Normal active bowel sounds MUSCULOSKELETAL: Extremities without cyanosis, or edema. NEURO: Alert & Oriented x4 to person, place, time, situation. 4+ out of 5 left lower extremity. 5 out of 5 rest of the major muscle groups. PSYCH: Appropriate mood and affect. Results - Labs CBC & Chem 7: 07/11/18 18:00 07/12/18 05:35 Laboratory Results - last 24 hr 07/12/18 07/12/18 07/12/18 16:37 17:58 20:05 POC Glucose 153 H 122 H IgG 754 IgA 189 IgM 43 L 07/13/18 07/13/18 08:37 11:50 POC Glucose 94 103 IgG IgA IgM Assessment and Plan - Plan 58-year-old female who presented with acute neurological symptoms including left upper extremity numbness, left lower extremity weakness, vision loss. TIA versus worsening spinal stenosis: -Discussed the case with neurology, Dr. Dawkins. This is the patient's second hospitalization within the past couple of weeks. I reviewed the report for her MRI from 06/22/18 which revealed cervical disc bulging and spinal stenosis. Patient reports she previously spoke to Dr. Cobos office and is awaiting an appointment. - Neurosurgery consulted. Patient reports she was told no surgical intervention. - MRI of the brain is negative. 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 - Awaiting further input from Neurology regarding the aneurysm. 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 Rhoades for IVIG. - Appreciate Dr. Rhoades input. She does not need IVIG at this time. She is to follow up outpatient. Hypothyroidism Continue home Synthroid COPD Continue home Symbicort Spinal stenosis/chronic back pain -Continue home dose narcotic. Patient is now at baseline. GI prophylaxis: PPI. Stool softener PRN constipation. DVT PPx: Lovenox Discharge Planning: Awaiting further input from Neurology. If no intervention regarding aneurysm, she can be discharged home to follow up outpatient.
[2018-07-13 16:47] VITALS: BP 129/63; PULSE 60; TEMP 98.7; O2SAT 95
--- NOTE | 2018-07-13 17:11 | P.DS ---
Date of admission: 07/11/18 21:15 Primary care physician: Dorothy Owens Brief History from admission: HPI from the admitting physician: 58-year-old female with a past medical history significant for Houston's disease , COPD, previous TIA 3 weeks ago, spinal stenosis, hypothyroidism and chronic low back pain presents to the emergency department for the evaluation of left sided numbness. The patient reports that at 3 PM this afternoon she started having numbness in her fingers of her left hand. She states the numbness then transitioned up to her hand up her arm and ultimately to her face. She also endorses associated vision loss that has since resolved. She reports left lower extremity weakness that has been present since her "mini stroke" 3 weeks ago where she was evaluated in [facility]. Upon further questioning, the patient reports she was diagnosed with a TIA. She has spinal stenosis with chronic low back pain and reports that she is supposed to see Dr. Cobos. She denies any chest pain or shortness of breath. No abdominal pain. No nausea/vomiting/diarrhea. No fever/chills. DS: Diagnosis - Discharge Diagnosis (1) Spinal stenosis Status: Acute (2) Numbness and tingling in left arm Status: Acute (3) Neck pain Status: Acute (4) Left leg weakness Status: Acute (5) Hypogammaglobulinemia Status: Acute (6) Hypothyroidism Status: Acute DS: Summary Hospital Course: 58-year-old female who presented with acute neurological symptoms including left upper extremity numbness, left lower extremity weakness, vision loss. Evaluation and treatment course detailed below: TIA versus worsening spinal stenosis: -Discussed the case with neurology, Dr. Dawkins. This is the patient's second hospitalization within the past couple of weeks. I reviewed the report for her MRI from 06/22/18 which revealed cervical disc bulging and spinal stenosis. Patient reports she previously spoke to Dr. Cobos office and is awaiting an appointment. - Neurosurgery consulted. Patient reports she was told no surgical intervention. - MRI of the brain is negative. 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 -I discussed the MRI findings with neurology. Given her symptoms have completely resolved, recommendation is for the patient to follow-up with neurosurgery outpatient. -Continue aspirin - EEG neg for seizure activity - 2D echocardiogram unremarkable. Houston's disease Continue home dose hydrocortisone Hypogammaglobulinemia: - Patient follows regularly with Dr. Rhoades for IVIG. - Appreciate Dr. Rhoades input. She does not need IVIG at this time. She is to follow up outpatient. Hypothyroidism Continue home Synthroid COPD Continue home Symbicort Spinal stenosis/chronic back pain -Continue home dose narcotic. Patient is now at baseline. - Time Spent with Patient Total time spent providing and/or coordinating discharge services: Less than 30 minutes Exam Vital signs: Vital Signs 07/12/18 20:00 07/12/18 20:40 07/12/18 22:52 Temperature 98.1 F Pulse Rate 61 Respiratory Rate 18 18 Blood Pressure 122/60 Pulse Oximetry 95 95 07/13/18 00:00 07/13/18 00:30 07/13/18 04:00 Temperature 97.6 F 97.2 F L Pulse Rate 58 L 58 L 59 L Respiratory Rate 18 16 Blood Pressure 106/58 L 123/69 Pulse Oximetry 94 L 96 07/13/18 04:10 07/13/18 04:30 07/13/18 08:00 Temperature 98.7 F Pulse Rate 56 L 62 Respiratory Rate 18 18 Blood Pressure 141/81 H Pulse Oximetry 94 L 07/13/18 10:11 07/13/18 10:40 07/13/18 12:00 Temperature 98 F Pulse Rate 57 L 55 L Respiratory Rate 18 Blood Pressure 137/72 Pulse Oximetry 94 L 96 07/13/18 13:09 07/13/18 16:00 Temperature 98.7 F Pulse Rate 57 L 60 Respiratory Rate 18 Blood Pressure 129/63 Pulse Oximetry 95 Intake & Output 07/12/18 07/13/18 07/13/18 18:59 06:59 18:59 Intake Total 1310 / 1310 1000 / 1000 Balance 1310 / 1310 1000 / 1000 Weight 85.7 kg Intake: IV 950 / 950 1000 / 1000 NS Inj 1,000 ML @ 70 mls/hr IV. 950 / 950 CONT .[id number] [facility] Rx#:[id number] Oral 360 / 360 Other: # Voids 3 1 Date of Last Bowel Movement 07/11/18 07/11/18 # Bowel Movements 0 Narrative: GENERAL: This is a well-nourished, well-developed patient, in no apparent distress. CARDIOVASCULAR: Normal rate and regular rhythm without murmurs, gallops, or rubs. RESPIRATORY: Good respiratory efforts. Breath sounds equal and clear to auscultation bilaterally. GASTROINTESTINAL: Abdomen soft, non-tender, non-distended. Normal active bowel sounds MUSCULOSKELETAL: Extremities without cyanosis, or edema. NEURO: Alert & Oriented x4 to person, place, time, situation. 4+ out of 5 left lower extremity. 5 out of 5 rest of the major muscle groups. PSYCH: Appropriate mood and affect. Results Procedures completed during hospitalization: None Labs on day of discharge: Labs from last 24 hours 07/13/18 07/13/18 07/13/18 16:40 11:50 08:37 POC Glucose 103 103 94 IgG IgA IgM 07/12/18 07/12/18 07/12/18 20:05 17:58 16:37 POC Glucose 122 H 153 H IgG 754 IgA 189 IgM 43 L - Impressions ITS Impressions Head CT 07/11/18 17:25 CONCLUSION: 1. Negative noncontrast head CT. . Carotid Doppler Study 07/12/18 00:00 CONCLUSION: 1. Right Internal Carotid Artery: No significant stenosis or atherosclerotic plaque is visualized. 2. Left Internal Carotid Artery: No significant stenosis or atherosclerotic plaque is visualized. 3. Right thyroid nodule. Head MRI 07/12/18 00:00 CONCLUSION: 1. Negative MR Brain non contrast. Head MRA 07/12/18 00:00 CONCLUSION: 1. Right paraophthalmic artery aneurysm. Discharge Plan - Discharge Disposition Patient Disposition: 01 Discharge Home - Discharge Condition Condition: Good - Discharge Order Discharge Orders: Discharge Order (Routine); Ordered 07/13/18 Ordered By: Carey Sy - Physicians Team Primary Care Provider: Dorothy Owens Attending Provider: Carey Sy Other Providers: Gita Dawkins MD ; Erna Umanzor ; Amrita Rhoades MD ; Obdulio Cobos MD
[2018-07-13] MEDS: Montelukast 10 MG Tablet PO SCH (18:52)
== END 2018-07-13 18:42 | disposition home or self-care (01) ==
LOC: NEPC 16:56 → NEDA 16:56 → N05 22:12
PROVIDERS: ADMIT Family Medicine; ATTEND Family Medicine